=== PATIENT | female | born 1985 | race African-American/Black ===

== ENCOUNTER 2016-10-31 09:53 | Emergency (ER) | payer MEDICAID ==
[~2016-10-31] VITALS: Ht 177.8 cm; Wt 69.0 kg
[2016-10-31 10:06] VITALS: BP 112/77
[2016-10-31] MEDS ORDERED: ALBUTEROL (0.083%) 2.5MG/3ML NEB HHN STA (12:06)
[2016-10-31] MEDS ORDERED: IPRATROPIUM BROMIDE (0.02%) 0.5MG/2.5ML NEB HHN STA (12:06)
[2016-10-31] MEDS ORDERED: PREDNISONE 20MG TABLET PO STA (12:06)
== END 2016-10-31 12:58 | disposition home or self-care (01) ==
LOC: ER 12:11
DX: J45.901 Unspecified asthma with (acute) exacerbation (principal); F12.10 Cannabis abuse, uncomplicated
CPT/HCPCS: 94640; 99283; J7512; J7611